=== PATIENT | female | born 1995 | race Caucasian/White ===

== ENCOUNTER → 2019-04-28 | Outpatient (CLI) | payer BC | LOC: COL.RAD 13:00 | DX: R10.11 Right upper quadrant pain (principal) ==

== ENCOUNTER 2019-08-24 18:12 | Emergency (ER) | payer BC ==
[~2019-08-24] VITALS: Ht 167.6 cm; Wt 93.2 kg
[2019-08-24 18:22] VITALS: BP 132/84; TEMP 97.6
[2019-08-24] MEDS ORDERED: SPRINTEC 35 MCG1 TAB PO (18:58)
[2019-08-24] MEDS ORDERED: PROZAC 20MG20 MG PO (18:58)
[2019-08-24 19:27] LABS: COLLECTION METHOD CLEAN CATCH
[2019-08-24 19:33] LABS: PH 8 (5-8); SQUAMOUS EPITHELIAL 0-2 /hpf; URINE APPEARANCE Clear; URINE BACTERIA None Seen /hpf; URINE BILIRUBIN Negative (NEGATIVE); URINE BLOOD Negative (NEGATIVE); URINE COLOR Yellow; URINE GLUCOSE Negative (NEGATIVE); URINE KETONE Negative (NEGATIVE); URINE LEUKOCYTE ESTERASE Negative (NEGATIVE); URINE NITRATE Negative (NEGATIVE); URINE PROTEIN(semi-quant) Negative (NEGATIVE); URINE RBC 0-2 /hpf; URINE UROBILINOGEN Negative (NEGATIVE)
[2019-08-24] MEDS ORDERED: NORCO 325 MG-51 TAB PO (20:31)
[2019-08-24 20:42] VITALS: PULSE 72
== END 2019-08-24 20:44 | disposition home or self-care (01) ==
LOC: COL.ER 18:12
PROVIDERS: Physician Assistant
DX: S39.011A Strain of muscle, fascia and tendon of abdomen, initial encounter (principal); X50.0XXA Overexertion from strenuous movement or load, initial encounter